=== PATIENT | female | born 1975 | race African-American/Black ===

== ENCOUNTER 2017-09-01 17:35 | Emergency (ER) | payer MEDICAID ==
[~2017-09-01] VITALS: Ht 165.1 cm; Wt 65.8 kg
[2017-09-01 17:47] VITALS: BP 166/96
[2017-09-01] MEDS ORDERED: Ketorolac 30mg Inj IV ONE (18:00)
[2017-09-01] MEDS ORDERED: Ampicillin/Sulbactam Sod 3 GM in NS 110 ML IVPB ONE (18:00)
[2017-09-01] MEDS ORDERED: Unasyn 3gm Inj ONE (18:05)
[2017-09-01] MEDS ORDERED: IBUPROFEN600 MG ORAL (18:41)
[2017-09-01 18:44] VITALS: BP 166/96
--- NOTE | 2017-09-01 19:47 | Emergency Room Report ---
History of Present Illness General Chief Complaint: Skin Rash/Abscess Source: Patient Present Illness HPI 42-year-old female presents ED complaining of pain and swelling to her left cheek. Started several days ago. Was seen by dentist and was told that she needed IV antibiotics. Was prescribed [place] and amoxicillin. Patient states pain is throbbing, 8 out of 10, nonradiating. Denies fevers or chills. Denies neck stiffness. Denies any discharge. No other aggravating or relieving factors. Denies any other associated symptoms Allergies: Coded Allergies: ACETAMINOPHEN (Verified Allergy, Unknown, 09/01/17) Patient History Past Medical History: none Past Surgical History: none Pertinent Family History: none Social History: Denies: smoking, alcohol use, drug use Last Menstrual Period: 08/28/17 Now: No : 1 Para: 1 Immunizations: UTD Reviewed Nursing Documentation: PMH: Agreed; PSxH: Agreed Nursing Documentation-PMH Past Medical History: No Stated History Review of Systems All Other Systems: negative except mentioned in HPI Physical Exam Vital Signs Date Time Temp Pulse Resp B/P (MAP) Pulse Ox O2 Delivery O2 Flow Rate FiO2 09/01/17 17:40 98.8 84 22 166/96 99 Room Air 98.8 Sp02 EP Interpretation: reviewed, normal General Appearance: no apparent distress, alert, GCS 15, non-toxic Head: normocephalic Eyes: bilateral eye normal inspection, bilateral eye PERRL ENT: other - swelling L cheek. no abscess. multiple dental caries noted Neck: full range of motion, supple/symm/no masses Respiratory: normal inspection Cardiovascular #1: normal inspection Gastrointestinal: normal inspection Rectal: deferred Genitourinary: no CVA tenderness Musculoskeletal: normal inspection Neurologic: alert, oriented x3, responsive, motor strength/tone normal, sensory intact, speech normal Psychiatric: judgement/insight normal Skin: normal inspection Lymphatic: normal inspection Medical Decision Making Diagnostic Impression: Primary Impression: Dental abscess ER Course 42-year-old female presents ED complaining of tooth pain, L cheek swelling Cracked tooth, dental abscess, cavity Patient placed on stretcher. After initial history, physical exam reveals a female in no acute distress. There are multiple dental caries noted. Some swelling noted to the left cheek. No fluctuance or discharge. Patient given IV Unasyn here. Given Toradol here. Patient safe for discharge. Will continue her antibiotics as prescribed and will follow-up with the dentist Diagnosis-dental abscess Stable and discharged to home. continue amoxicillin as prescribed. f/u with dentistry. Return to ED if symptoms recur or worse Last Vital Signs Date Time Temp Pulse Resp B/P (MAP) Pulse Ox O2 Delivery O2 Flow Rate FiO2 09/01/17 18:44 98.8 88 22 166/96 99 Room Air 98.8 Status: improved Disposition: HOME, SELF-CARE Condition: Stable Scripts Ibuprofen* (MOTRIN*) 600 Mg Tablet 600 MG ORAL Q8H PRN for For Pain, #30 TAB 0 Refills Prov: Artis Oscar MD 09/01/17 Patient Instructions: Dental Abscess, [id number] Additional Instructions: continue abx as prescribed. f/u with dentist Artis Oscar MD Sep 01, 2017 19:47
== END 2017-09-01 18:47 | disposition home or self-care (01) ==
LOC: EMR 18:17
DX: K04.7 Periapical abscess without sinus (principal); Z88.6 Allergy status to analgesic agent
CPT/HCPCS: 96365; 96375; 99284; J0295; J1885